=== PATIENT | male | born 1965 | race Caucasian/White ===

== ENCOUNTER 2022-04-07 19:49 | Emergency (ER) | payer OTHER, SELFPAY ==
--- NOTE | ~2022-04-07 | CT_ITS ---
EXAMINATION: CT LUMBAR SPINE WITHOUT CONTRAST CLINICAL INFORMATION: Trauma. Back Pain. Left leg numbness. On Eliquis COMPARISON: None TECHNIQUE: Axial images obtained through the cervical spine. Coronal and sagittal reformatted images are performed at CT scanner This CT examination was performed using dose optimization techniques as appropriate, variously including the following: *Automated exposure control *Adjustment of mA and/or kV according to patient size (this includes techniques or standardized protocols for targeted exams where dose is matched to indication/reason for exam; i.e. extremities or head) *Use of iterative reconstruction technique DLP; 23.39+23.39+874.33 mGy-cm FINDINGS: There are 4 nonrib-bearing lumbar vertebrae. There is sacralization of the L5 vertebrae. Vertebrae have normal height and alignment. No fracture. No spondylolysis or spondylolisthesis. No paraspinal hematoma or fluid collection. Vascular calcifications of the abdominal aorta without aneurysm. Disc levels: T12-L1: Lumbar disc height normal. No disc protrusion. No central canal stenosis. Neural foramina open. Mild facet joint arthrosis. L1-L2: Lumbar disc height normal. No disc protrusion. No central canal stenosis. Neural foramina open. Mild facet joint arthrosis. L2-L3: Mild disc height narrowing. Circumferential bulge with annular fibers. No focal disc protrusion. Mild central canal stenosis. Mild degenerative change of the facet joints. Neural foramina open bilateral. L3-L4: Marked disc height narrowing with vacuum disc changes. No focal disc protrusion. Mild to moderate central canal stenosis. Mild facet joint arthrosis. Slight narrowing of the right neural foramina. Left neural foramina is open. L4-L5: Marked disc height narrowing vacuum disc changes. No focal disc protrusion. No central canal stenosis. Moderate facet joint arthrosis. Mild narrowing of the neural foramina bilaterally. CT/CT lumbar spine wo IV con IMPRESSION: 1. No acute abnormality. 2. Degenerative changes of the lumbar spine.
--- NOTE | ~2022-04-07 | CT_ITS ---
EXAMINATION: CT HEAD WITHOUT CONTRAST CT CERVICAL SPINE WITHOUT CONTRAST CLINICAL INFORMATION: Trauma. COMPARISON: None. TECHNIQUE: Imaging was performed from the skull base to vertex without intravenous administration of contrast. In addition, helical noncontrast CT imaging was acquired through the cervical spine and source images were reviewed along with axial reconstructions and sagittal and coronal MPRs. [This CT examination was performed using dose optimization techniques as appropriate, variously including the following: *Automated exposure control *Adjustment of mA and/or kV according to patient size (this includes techniques or standardized protocols for targeted exams where dose is matched to indication/reason for exam; i.e. extremities or head) *Use of iterative reconstruction technique] DLP: 10.25+762.61+889.93 mGy-cm FINDINGS: HEAD: No intracranial mass, hemorrhage, or midline shift is visualized. The ventricles and sulci are proportional. No extra-axial collections are identified. The paranasal sinuses and mastoid air cells are well aerated. CERVICAL SPINE: There is no evidence of acute cervical spine fracture. Vertebral bodies remain normal in height. Cervical vertebrae have normal alignment. There is mild multilevel degenerative spondylosis of the cervical spine with disc height narrowing and endplate spurs and facet joint arthrosis No pre- or paravertebral soft tissue abnormality is identified. Limited assessment of the lung apices is unremarkable. CT/CT head/brain wo IV con IMPRESSION: 1. No acute intracranial pathology. 2. No CT evidence of acute cervical spine fracture or traumatic subluxation
--- NOTE | ~2022-04-07 | CT_ITS ---
EXAMINATION: CT HEAD WITHOUT CONTRAST CT CERVICAL SPINE WITHOUT CONTRAST CLINICAL INFORMATION: Trauma. COMPARISON: None. TECHNIQUE: Imaging was performed from the skull base to vertex without intravenous administration of contrast. In addition, helical noncontrast CT imaging was acquired through the cervical spine and source images were reviewed along with axial reconstructions and sagittal and coronal MPRs. [This CT examination was performed using dose optimization techniques as appropriate, variously including the following: *Automated exposure control *Adjustment of mA and/or kV according to patient size (this includes techniques or standardized protocols for targeted exams where dose is matched to indication/reason for exam; i.e. extremities or head) *Use of iterative reconstruction technique] DLP: 10.25+762.61+889.93 mGy-cm FINDINGS: HEAD: No intracranial mass, hemorrhage, or midline shift is visualized. The ventricles and sulci are proportional. No extra-axial collections are identified. The paranasal sinuses and mastoid air cells are well aerated. CERVICAL SPINE: There is no evidence of acute cervical spine fracture. Vertebral bodies remain normal in height. Cervical vertebrae have normal alignment. There is mild multilevel degenerative spondylosis of the cervical spine with disc height narrowing and endplate spurs and facet joint arthrosis No pre- or paravertebral soft tissue abnormality is identified. Limited assessment of the lung apices is unremarkable. CT/CT cervical spine wo IV con IMPRESSION: 1. No acute intracranial pathology. 2. No CT evidence of acute cervical spine fracture or traumatic subluxation
[2022-04-07 21:18] VITALS: BP 149/86; PULSE 84; RESP 16; TEMP 36.6; O2SAT 99; BMI 40.3
--- NOTE | 2022-04-07 22:19 | ED.FALL ---
HPI - Fall General Chief Complaint: Fall Stated Complaint: Fall at work Time Seen by Provider: 04/07/22 21:40 Source: patient Mode of arrival: ambulatory Limitations: no limitations History of Present Illness HPI Narrative: 57-year-old male with history of AFib on Eliquis, hypertension, hyperlipidemia presents with complaints of headache, photophobia, neck pain, lower back pain with radiation of pain into the left leg with decreased sensation. 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 Patient tells me that there was a ditch that he did not see and when he went to step down he fell approximately 4 ft landing backwards hitting the back of his head and his back on the ground. Unsure if there was loss of consciousness. Patient was able to get up after the fall. Immediately had pain in the lower back which radiated to the left leg. Patient denies any weakness of the extremities. No chest or abdominal pain. No vomiting or dizziness. Related Data Previous Rx's Medication Instructions Recorded cyclobenzaprine 10 mg tablet 10 mg PO TID PRN muscle spasm #15 04/07/22 tabs lidocaine 5 % topical patch 1 patch topical DAILY #15 ea 04/07/22 (Lidoderm) Allergies Allergy/AdvReac Type Severity Reaction Status Date / Time fentanyl [FENTANYL] Allergy Unknown THROAT Unverified 03/13/20 17:29 CLOSES UP morphine [MORPHINE] Allergy Unknown THROAT Unverified 03/13/20 17:29 CLOSES UP Review of Systems Review of Systems: Yes all other systems are reviewed and are negative Constitutional: Constitutional: Reports no additional constitutional complaints, Denies body ache(s), Denies chills, Denies fever(s), Reports headache(s) and Denies weakness Eyes: Eyes: Reports no additional eye complaints, Denies change in vision and Reports photophobia ENT: Reports system reviewed and no additional complaints, except as documented, Denies dizziness, Reports headache(s), Denies nasal congestion, Denies nasal discharge and Reports neck pain Cardiovascular: Cardiovascular: Reports no additional cardiovascular complaints, Denies chest pain, Denies leg edema and Denies dyspnea Respiratory: Respiratory: Reports no additional respiratory complaints, Denies cough and Denies dyspnea Gastrointestinal: Gastrointestinal: Reports no additional gastrointestinal complaints, Denies abdominal pain, Denies diarrhea, Denies nausea and Denies vomiting Genitourinary: Genitourinary: Denies urinary incontinence Musculoskeletal: Musculoskeletal: Reports no additional musculoskeletal complaints, Reports back pain, Denies arthralgias, Denies joint swelling, Reports neck pain, Reports numbness and Denies tingling Integumentary/Breasts: Skin/Breast: Reports system reviewed and no additional complaints, except as docu and Denies rash Neurologic: Reports system reviewed and no additional complaints, except as documented, Denies Abnormal speech present, Denies dizziness, Reports headache(s), Reports numbness, Denies tingling and Denies weakness FOR[facility]LY [facility] Past Medical History Attestation statement: The following information was validated with the patient. Source: old records reviewed and nursing notes reviewed Social History Social History Advance Directives: No Advance Directives Information Provided: No Physical Exam Vital Signs: Vital Signs: Last Vital Signs Temp 98 F 04/07/22 21:18 Pulse 84 04/07/22 21:18 Resp 16 04/07/22 21:18 BP 149/86 H 04/07/22 21:18 Pulse Ox 99 04/07/22 21:18 O2 Del Method 04/07/22 21:18 BMI result Body Mass Index 40.3 Const: General: cooperative, healthy appearing, comfortable and no acute distress Orientation/consciousness: patient oriented x3 Limitations: no limitations HEENT: Head: Yes normal to inspection Ears: hearing grossly normal bilaterally and TM's normal bilaterally General nose exam: Normal external nose present Face and sinus: Yes normal facial exam Mouth: Normal oral and palatal mucosa present Throat: Yes posterior oropharynx normal, Yes tonsils normal and Yes uvula midline Eyes: General: appearance normal, both eyes and all related structures Pupils: Equal, round and reactive pupils present Direct Ophthalmoscopy: photophobia Neck: Other: There is midline cervical tenderness with no step-offs or deformities. Neck: Yes normal visual inspection and Yes full ROM Chest: Chest palpation & inspection: normal inspection of the chest Resp: Effort & Inspection: normal respiratory effort Auscultation: clear to auscultation bilaterally Cardio: Rate: regular rate Rhythm: regular rhythm Peripheral pulses: Peripheral pulses 2+ throughout GI: Inspection: Yes normal to inspection Palpation (GI): Soft to palpation and nontender Auscultation: normal bowel sounds Back/Spine/Pelvis: Other: There is tenderness the lumbar mid spine with no step-offs or deformities Thoracic/Lumbar Spine: thoracic and lumbar spine normal to inspection Skin: General skin exam: no rashes or lesions noted Neuro: General: patient oriented x3, no focal motor deficits and normal sensation to monofilament Cranial nerves: Yes CN's II-XII intact bilaterally, Yes Equal, round and reactive pupils present, Yes Bilaterally intact EOM present, Yes Nystagmus not present and Yes Normal facial strength present Cognition (Neuro): normal cognition Speech: No Abnormal speech present Gait exam (Neuro): Normal gait present Motor exam (neuro): 5/5 motor strength present throughout Sensory Exam: Normal double simultaneous stimulation for sensation Deep tendon reflexes (DTR's): Right patellar reflex intensity grade: 2+ and Left patellar reflex intensity grade: 2+ Extrem: General: Yes normal to inspection Course Course Course Narrative: 2344-CT head and cervical spine show no acute finding. CT lumbar spine shows degenerative changes but no evidence of paraspinal hematoma or acute fracture. Likely lumbar radiculopathy. No overt neurological deficits or red flag symptoms to suggest cord compression, epidural hematoma. Reviewed worrisome signs and symptoms with patient when to return to the emergency room. Comfortable discharge home. Patient will follow-up with work connection outpatient MDM - Fall MDM Narrative Medical decision making narrative: This is a 57-year-old male who is on anticoagulation for AFib who presents with complaints of a fall which occurred yesterday with subsequent headache, photophobia, neck pain, back pain with radiation to the left leg with decreased sensation subjectively. No overt neurological deficit. As patient is on Eliquis with headache and photophobia and head strike will check CT head. Will also obtain CT of cervical spine. Patient does report back pain with radiation to the left leg with decreased sensation. On exam sensation is intact. No motor weakness. Reflexes are normal in the lower extremities. Will also obtain CT lumbar spine due to patient being on anticoagulation Medical Records Attestation: I reviewed the patient's medical records. Lab Data Attestation: I reviewed the patient's lab results. Imaging Data ct head/cervical spine: Attestation: I personally reviewed and interpreted this imaging study as follows: Radiologist's impression: [address] [address] [address] Scan Report Signed Patient: Rajat Douglass MR#: [id number] : 1965 Acct:[id number] Age/Sex: 57 / M ADM Date: 04/07/22 Loc: HO.ED Attending Dr: Ordering Physician: Evelin Mejia NP Date of Service: 04/07/22 Procedure(s): CT cervical spine wo IV con Accession Number(s): [id number] cc: Evelin Mejia NP~ EXAMINATION: CT HEAD WITHOUT CONTRAST CT CERVICAL SPINE WITHOUT CONTRAST CLINICAL INFORMATION: Trauma.? COMPARISON: None. TECHNIQUE: Imaging was performed from the skull base to vertex without intravenous administration of contrast. In addition, helical noncontrast CT imaging was acquired through the cervical spine and source images were reviewed along with axial reconstructions and sagittal and coronal MPRs. [This CT examination was performed using dose optimization techniques as appropriate, variously including the following: *Automated exposure control *Adjustment of mA and/or kV according to patient size (this includes techniques or standardized protocols for targeted exams where dose is matched to indication/reason for exam; i.e. extremities or head) *Use of iterative reconstruction technique] DLP: 10.25+762.61+889.93 mGy-cm FINDINGS: HEAD: No intracranial mass, hemorrhage, or midline shift is visualized. The ventricles and sulci are proportional. No extra-axial collections are identified. The paranasal sinuses and mastoid air cells are well aerated. CERVICAL SPINE: There is no evidence of acute cervical spine fracture. Vertebral bodies remain normal in height. Cervical vertebrae have normal alignment. There is mild multilevel degenerative spondylosis of the cervical spine with disc height narrowing and endplate spurs and facet joint arthrosis No pre- or paravertebral soft tissue abnormality is identified. Limited assessment of the lung apices is unremarkable. CT/CT cervical spine wo IV con IMPRESSION: 1. No acute intracranial pathology. 2. No CT evidence of acute cervical spine fracture or traumatic subluxation ? ct lumbar spine: Attestation: I personally reviewed and interpreted this imaging study as follows: Radiologist's impression: FINDINGS: There are 4 nonrib-bearing lumbar vertebrae. There is sacralization of the L5 vertebrae. Vertebrae have normal height and alignment. No fracture. No spondylolysis or spondylolisthesis. No paraspinal hematoma or fluid collection. Vascular calcifications of the abdominal aorta without aneurysm. Disc levels: T12-L1: Lumbar disc height normal. No disc protrusion. No central canal stenosis. Neural foramina open. Mild facet joint arthrosis. L1-L2: Lumbar disc height normal. No disc protrusion. No central canal stenosis. Neural foramina open. Mild facet joint arthrosis. L2-L3: Mild disc height narrowing. Circumferential bulge with annular fibers. No focal disc protrusion. Mild central canal stenosis. Mild degenerative change of the facet joints. Neural foramina open bilateral. L3-L4: Marked disc height narrowing with vacuum disc changes. No focal disc protrusion. Mild to moderate central canal stenosis. Mild facet joint arthrosis. Slight narrowing of the right neural foramina. Left neural foramina is open. L4-L5: Marked disc height narrowing vacuum disc changes. No focal disc protrusion. No central canal stenosis. Moderate facet joint arthrosis. Mild narrowing of the neural foramina bilaterally. CT/CT lumbar spine wo IV con IMPRESSION: ? 1. No acute abnormality. 2. Degenerative changes of the lumbar spine.? Discharge Plan Discharge Clinical Impression: Cervical strain, Acute left lumbar radiculopathy Patient Disposition: Home, Self-Care Instructions: Cervical Strain (ED), Lumbar Radiculopathy (ED), Lower Back Exercises (ED) Additional Instructions: Follow-up with work connection at [id number] Heat or ice to affected areas No heavy lifting or bending Return for incontinence of urine/stool, fever >100.4, numbness in the groin, weakness of the extremities Prescriptions: New cyclobenzaprine 10 mg tablet 10 mg PO TID PRN (Reason: muscle spasm) Qty: 15 0RF lidocaine [Lidoderm] 5 % adhesive patch,medicated 1 patch topical DAILY Qty: 15 0RF Rx Instructions: leave on most painful area for up to 12 hrs Referrals: Physician,Unknown J [Primary Care Provider] - Stand Alone Forms: Work/School Release
== END 2022-04-08 00:05 | disposition home or self-care (01) ==
PROVIDERS: Emergency Provider Emergency Medicine
DX: M54.16 Radiculopathy, lumbar region (principal); M54.2 Cervicalgia; R51.9 Headache, unspecified; M54.50 Low back pain, unspecified
CPT/HCPCS: 70450; 72125; 72131; 99282; 99284

== ENCOUNTER 2022-04-10 02:02 | Emergency (ER) | payer OTHER, MEDICARE, MEDICAID, SELFPAY ==
[2022-04-10 02:23] VITALS: BP 154/100; PULSE 85; RESP 11; TEMP 36.6; O2SAT 95; BMI 41.0
[2022-04-10 02:35] VITALS: BP 153/84; PULSE 81; RESP 18; TEMP 36.8; O2SAT 96
--- NOTE | 2022-04-10 02:36 | PC.NURSE ---
Care of patient assumed now in ED. He is alert, oriented x4, and well-appearing. He endorses misstepping out of his work truck on Tuesday morning and falling with +head strike and +LOC. On eliquis for AFIB/CVA. Was seen here yesterday for pain and said the scans were negative. Today, he had an episode of incontinence while in bed and numbness underneath his testicles, so his PCP told him to come back to ED. he endorses pain in his lower back and nerve pain down his left leg. Also endorses pain to left shoulder. Incontinence episode was around 4PM.
[2022-04-10 02:38] LABS: Appearance Urine Clear; Color Urine Yellow; Glucose Urine UA Negative (Negative); Leukocyte Esterase Urine Negative (Negative); Nitrite Urine Negative (Negative); PH 5.5 (5.0-9.0); Specific Gravity - Urine 1.025 (1.005-1.025); Urine Blood Negative (Negative); Urine Ketones Negative (Negative); Urine Protein Negative (Neg-Trace)
[2022-04-10 02:42] LABS: Bacteria Urine None Seen (None Seen); Hyaline Casts Urine 0-2 /LPF (0-2); RBC Urine 0-2 /HPF (0-2); Squamous Epithelial Cell Urine 0-2 /HPF (0-2); WBC Urine 0-5 /HPF (0-5)
[2022-04-10 02:50] LABS: Hematocrit 44.3 % (42.0-52.0); Hemoglobin 14.9 g/dl (14.0-18.0); Mean Corpuscular HGB Conc 33.6 g/dl (31.0-36.0); Mean Corpuscular Hemoglobin 31.4 pg (27.0-33.0); Mean Corpuscular Volume 93.3 fL (80.0-98.0); Mean Platelet Volume 9.5 fL (9.4-12.4); Platelet Count 275 X10*3/uL (160-400); Red Blood Count 4.75 X10*6/uL (4.60-5.80); Red Cell Distribution Width 13.2 % (11.0-16.0); White Blood Count 6.5 X10*3/uL (4.8-10.8)
[2022-04-10 03:13] LABS: Alanine Aminotransferase 25 U/L (0-40); Albumin Level 4.5 g/dL (3.5-5.0); Alkaline Phosphatase 122 U/L (39-117); Anion Gap 15 (12-20); Aspartate Amino Transferase 18 U/L (5-37); Bilirubin Direct 0.2 mg/dL (0.0-0.5); Bilirubin Total 0.3 mg/dL (0.0-1.0); Blood Urea Nitrogen 16 mg/dL (9-16); Calcium 9.3 mg/dL (8.4-10.2); Carbon Dioxide 26 mmol/L (22-29); Chloride 102 mmol/L (96-108); Creatinine Clr Calc Pharmacy 115.2; Estimated Glomerular Filt Rate > 60; Glucose Random 133 mg/dL (60-115); Lipase 20 U/L (8-78); Potassium 4.3 mmol/L (3.3-5.1); Sodium 139 mmol/L (135-145)
--- NOTE | 2022-04-10 03:17 | ED_ITS ---
HPI - General Adult General Chief complaint: General Medical Stated complaint: L Shoulder pain/Back pain (Work Inj) Time Seen by Provider: 04/10/22 03:16 Source: patient Mode of arrival: ambulatory Limitations: no limitations History of Present Illness HPI narrative: Patient is 57 years old with history of AFib on Eliquis, hypertension, hyperlipidemia was seen here on 04/07/2022 after he fell in a ditch when coming out of the truck on 04/06 which was about 4-6 feet deep patient fell and hit his back and neck part to the ground since then patient complaining of numbness in perineal area patient had a CT scan lumbar spine C-spine and head CT was negative no incontinence patient has controlled on stool but just does not feel his perineum area. Related Data Previous Rx's Medication Instructions Recorded cyclobenzaprine 10 mg tablet 10 mg PO TID PRN muscle spasm #15 04/07/22 tabs lidocaine 5 % topical patch 1 patch topical DAILY #15 ea 04/07/22 (Lidoderm) Allergies Allergy/AdvReac Type Severity Reaction Status Date / Time fentanyl [FENTANYL] Allergy Unknown THROAT Unverified 03/13/20 17:29 CLOSES UP morphine [MORPHINE] Allergy Unknown THROAT Unverified 03/13/20 17:29 CLOSES UP Review of Systems Review of Systems: Yes all other systems are reviewed and are negative PMFSH Social History Social History Advance Directives: No Advance Directives Information Provided: Yes Physical Exam ED Vital Signs: Vital Signs - 24 hr 04/10/22 02:23 04/10/22 02:35 04/10/22 05:06 Temperature 97.9 F 98.3 F Pulse Rate 85 81 93 Respiratory Rate 11 L 18 22 H Blood Pressure 154/100 H 153/84 H 139/88 Pulse Oximetry 95 96 97 Oxygen Delivery Method Room Air Room Air Room Air 04/10/22 06:12 Temperature 98.1 F Pulse Rate 75 Respiratory Rate 16 Blood Pressure 132/88 Pulse Oximetry 96 Oxygen Delivery Method Room Air BMI result Body Mass Index 41.0 Appearance: Alert. Oriented X3. No acute distress. Eyes: PERRLA, No Nystagmus ENT: Pharynx normal. Oral Mucosa moist Neck: Normal inspection. Neck supple. CVS: Normal heart rate and rhythm. Pulses normal. Respiratory: No respiratory distress. Equal air entry bilateral, no wheezing/rales/rhonchi Abdomen: Soft and nontender. Bowel sounds are present, no mass palpable, no CVA tenderness Skin: Skin warm and dry. Normal skin color. Normal skin turgor. Extremities: No lower extremity edema. No calf tenderness Back: Diffuse lower lumbar tenderness cycle since she has an intact rectal tone is normal decreased perianal sensation Neuro: Oriented X 3. No motor deficit. No sensory deficit.No cerebellar signs , cranial nerves II-XII intact DTR 2+ bilateral SLR negative Medical Decision Making MDM Narrative Medical decision making narrative: 6 am Patient with loss of sensation in perineal area after the fall will get MRI to rule out cauda equina patient was given p.o. Decadron awaiting for MRI in a.m. patient's CT scan of lumbar spine was negative for any fracture 7 am patient signed out to Dr. Argueta pending MRI and disposition Lab Data Result diagrams: 04/10/22 02:44 04/10/22 02:44 Labs: Lab Results 04/10/22 04/10/22 04/10/22 Range/Units 02:32 02:44 02:44 WBC 6.5 (4.8-10.8) X10*3/uL RBC 4.75 (4.60-5.80) X10*6/uL Hgb 14.9 (14.0-18.0) g/dl Hct 44.3 (42.0-52.0) % MCV 93.3 (80.0-98.0) fL MCH 31.4 (27.0-33.0) pg MCHC 33.6 (31.0-36.0) g/dl RDW 13.2 (11.0-16.0) % Plt Count 275 (160-400) X10*3/uL MPV 9.5 (9.4-12.4) fL Absolute Nucleated RBC 0.000 (0.0-0.012) X10*3/uL Nucleated RBC % (auto) 0.0 (0.0-0.2) /100WBC Sodium 139 (135-145) mmol/L Potassium 4.3 (3.3-5.1) mmol/L Chloride 102 (96-108) mmol/L Carbon Dioxide 26 (22-29) mmol/L Anion Gap 15 (12-20) BUN 16 (9-16) mg/dL Creatinine 0.89 (0.5-1.4) mg/dL Estim Creat Clear Calc 115.2 Estimated GFR > 60 Random Glucose 133 H (60-115) mg/dL Calcium 9.3 (8.4-10.2) mg/dL Total Bilirubin 0.3 (0.0-1.0) mg/dL Direct Bilirubin 0.2 (0.0-0.5) mg/dL AST 18 (5-37) U/L ALT 25 (0-40) U/L Alkaline Phosphatase 122 H (39-117) U/L Total Protein 7.0 (6.5-8.0) g/dL Albumin 4.5 (3.5-5.0) g/dL Lipase 20 (8-78) U/L Urine Color Yellow Urine Appearance Clear Urine pH 5.5 (5.0-9.0) Ur Specific [place] 1.025 (1.005-1.025) Urine Protein Negative (Neg-Trace) mg/dL Urine Glucose (UA) Negative (Negative) mg/dL Urine Ketones Negative (Negative) mg/dL Urine Blood Negative (Negative) Urine Nitrite Negative (Negative) Ur Leukocyte Esterase Negative (Negative) Urine RBC 0-2 (0-2) /HPF Urine WBC 0-5 (0-5) /HPF Ur Squamous Epith Cells 0-2 (0-2) /HPF Urine Bacteria None Seen (None Seen) Hyaline Casts 0-2 (0-2) /LPF Discharge Plan Discharge Clinical Impression: Low back pain Patient Disposition: Still a Patient Prescriptions: No Action cyclobenzaprine 10 mg tablet 10 mg PO TID PRN (Reason: muscle spasm) Qty: 15 0RF lidocaine [Lidoderm] 5 % adhesive patch,medicated 1 patch topical DAILY Qty: 15 0RF Rx Instructions: leave on most painful area for up to 12 hrs
[2022-04-10] MEDS: oxyCODONE HCl Immed Release 5 MG TABLET 10 MG PO ×2 (03:39→07:59)
[2022-04-10] MEDS: dexAMETHasone 2 MG TABLET 10 MG PO (03:39)
[2022-04-10 05:06] VITALS: BP 139/88; PULSE 93; RESP 22; O2SAT 97
[2022-04-10 06:12] VITALS: BP 132/88; PULSE 75; RESP 16; TEMP 36.7; O2SAT 96
[2022-04-10 11:38] VITALS: BP 146/91; PULSE 77; RESP 16; O2SAT 95
== END 2022-04-10 11:53 | disposition left against medical advice (07) ==
PROVIDERS: Emergency Provider Internal Medicine; PCP Internal Medicine
DX: Z04.2 Encounter for examination and observation following work accident (principal); M54.50 Low back pain, unspecified; R20.2 Paresthesia of skin; I10 Essential (primary) hypertension; I48.91 Unspecified atrial fibrillation; E78.5 Hyperlipidemia, unspecified; Z79.01 Long term (current) use of anticoagulants; E66.9 Obesity, unspecified; Z68.41 Body mass index [BMI] 40.0-44.9, adult
CPT/HCPCS: 36415; 80053; 81001; 82248; 83690; 85027; 99283; 99284; J8540

== ENCOUNTER 2023-09-03 23:42 | Emergency (ER) | payer MEDICARE, MEDICAID, SELFPAY ==
[2023-09-03 23:44] VITALS: BP 129/82; PULSE 86; RESP 18; TEMP 36.8; O2SAT 94; BMI 41.8
--- NOTE | 2023-09-04 00:07 | ED_ITS ---
HPI - General Adult General Chief complaint: Dental/Oral Stated complaint: gen med Time Seen by Provider: 09/04/23 00:07 Source: patient Mode of arrival: ambulatory Limitations: no limitations History of Present Illness HPI narrative: Patient is a 58 year old, assigned male at with a history of HTN, HLD, pre-diabetes, and CVA (ischemic stroke) presents to the ED for a 2 day history of dental pain s/p tooth extraction 7 days ago. Patient endorses pain from the area surrounding the extraction site. Patient endorses facial swelling, fevers, and chills as associated symptoms. Denies headaches, lightheadedness, dizziness, cough, sore throat, SOB, chest pain, palpitation, abdominal pain, changes in bowel or urinary habits, and numbness and tingling. No recent ABX use. MD complaint: Dental pain Onset (ago): day(s) (2) Location: mouth (extraction site) Radiation: non-radiation Severity: mild Severity scale (1-10): 2 Quality: aching Pain Consistency: constant Relieving factors: none Exacerbating factors: none Treatments prior to arrival: none Related Data Previous Rx's Medication Instructions Recorded cyclobenzaprine 10 mg tablet 10 mg PO TID PRN muscle spasm #15 04/07/22 tabs lidocaine 5 % topical patch 1 patch topical DAILY #15 ea 04/07/22 (Lidoderm) penicillin V potassium 500 mg 500 mg PO BID 10 days #20 tabs 09/04/23 tablet Allergies Allergy/AdvReac Type Severity Reaction Status Date / Time fentanyl [FENTANYL] Allergy Unknown THROAT Verified 09/03/23 23:48 CLOSES UP morphine [MORPHINE] Allergy Unknown THROAT Verified 09/03/23 23:48 CLOSES UP Review of Systems Constitutional: Constitutional: Reports no additional constitutional complaints, Denies chills, Denies fever(s) and Denies night sweats Eyes: Eyes: Reports no additional eye complaints, Denies blurry vision, Denies change in vision, Denies diplopia, Denies eye discharge, Denies loss of vision and Denies eye pain ENT: Denies dizziness Comments: dental pain Cardiovascular: Cardiovascular: Reports no additional cardiovascular complaints, Denies chest pain, Denies lightheadedness, Denies Loss of Consciousness and Denies dyspnea Respiratory: Respiratory: Reports no additional respiratory complaints and Denies dyspnea Gastrointestinal: Gastrointestinal: Reports no additional gastrointestinal complaints, Denies abdominal pain, Denies melena, Denies hematochezia, Denies change in bowel habits and Denies change in stool character Genitourinary: Genitourinary: Reports no additional male genitourinary complaints, Denies hematuria, Denies oliguria, Denies difficulty urinating, Den ies dysuria, Denies urinary frequency, Denies urinary hesitancy, Denies urinary incontinence and Denies urinary urgency Musculoskeletal: Musculoskeletal: Reports no additional musculoskeletal complaints, Denies numbness and Denies tingling Neurologic: Denies dizziness, Denies loss of vision, Denies numbness and Den ies tingling Psychiatric: Psychiatric: Reports no additional psychiatric complaints Endocrine: Endocrine: Reports no additional endocrine complaints Hematologic/Lymphatic: Hematologic/Lymphatic: Reports no additional hematologic/lymphatic complaints Allergic/Immunologic: Allergic/Immunologic: Reports no additional allergic/immunologic complaints [facility] Past Medical History Attestation statement: The following information was validated with the patient. Source: old records reviewed and nursing notes reviewed Social History Social History Smoked in Last 30 Days: Yes Use of substances other than those prescribed or required for medical reasons: No Advance Directives: No Advance Directives Information Provided: No Physical Exam ED Vital Signs: Vital Signs - 24 hr 09/03/23 23:44 09/04/23 00:41 Temperature 98.2 F 98.6 F Pulse Rate 86 90 Respiratory Rate 18 17 Blood Pressure 129/82 118/72 Pulse Oximetry 94 96 Oxygen Delivery Method Room Air Room Air BMI result Body Mass Index 41.8 Const General: cooperative, no acute distress, alert and awake Nutritional Appearance: obese Orientation/consciousness: patient oriented x3 Limitations: no limitations [facility] Head: Yes normal to inspection Ears: hearing grossly normal bilaterally General nose exam: Normal external nose present Face and sinus: Yes normal facial exam Mouth: Normal oral and palatal mucosa present Teeth and gingiva: abnormal tooth and associated gingiva upper left lateral incisor tender, with associated gingival edema and other (tooth extraction site w/ presence of aphthous ulcers) and poor dentition Throat: Yes posterior oropharynx normal Eyes General: appearance normal, both eyes and all related structures Periorbital: periorbital findings normal Eyelids: Yes eyelids normal Conjunctivae: conjunctivae normal Pupils: Equal, round and reactive pupils present EOM: EOMs intact bilaterally Neck Neck: Yes normal visual inspection Chest Chest palpation & inspection: normal inspection of the chest Resp Effort & Inspection: normal respiratory effort and able to speak in complete sentences Auscultation: clear to auscultation bilaterally Cardio Jugular venous distension: no JVD Palpation: normal PMI Rate: regular rate Rhythm: regular rhythm GI Inspection: Yes normal to inspection Neuro General: patient oriented x3 Cranial nerves: Yes Equal, round and reactive pupils present Cognition (Neuro): normal cognition Motor exam (neuro): 5/5 motor strength present throughout Sensory Exam: Normal double simultaneous stimulation for sensation Coordination: [id number] test normal Extrem General: Yes normal to inspection, Yes full ROM and Yes capillary refill normal Psych Appearance: grossly normal Mental Status: mental status grossly normal Affect: normal affect Attitude: cooperative Thought process: Normal thought process present Thought content: Normal thought content present Insight: Good insight present (Psych) Medical Decision Making Medical Decision Making MDM Narrative: Patient is a 58 year old assigned male at with a history of CVA and recent dental extraction presenting to the emergency department today with dental pain and swelling. Patient's physical exam was as noted in the physical exam portion of this note. I explained my physical exam findings to the patient. I answered all questions asked by the patient. I stressed the importance of the patient taking his medication as prescribed. I stressed the importance of the patient following up with his primary care provider and his dentist. I stressed the importance of the patient returning to the emergency department immediately if his symptoms were to worsen or if he were to develop any dizziness, shortness of breath, difficulty breathing, chest pain, blurry vision, loss of vision, nausea, vomiting, abdominal pain, fever, chills, back pain, or any other complaints. Patient verbalized agreement and understanding with this treatment plan and discharge. Differential Diagnosis Differential Diagnoses: The differential diagnosis associated with the presentation includes Dental abscess Dental pain Poor dentition Dental caries Admission/Observation Consideration of admission/observation: Escalation of care including admission/observation considered Patient would have been admitted to the hospital had his clinical presentation warranted hospital admission. Prescription Management I considered prescription management with: Antibiotic (patient prescribed an antibiotic) Discharge Plan Discharge Clinical Impression: Dental abscess Patient Disposition: Home, Self-Care Instructions: Dental Abscess (ED) Additional Instructions: Follow up with your primary care provider and your dentist. Return to the emergency department immediately if your symptoms worsen or if you develop any dizziness, shortness of breath, difficulty breathing, chest pain, blurry vision, loss of vision, nausea, vomiting, abdominal pain, fever, chills, back pain, or any other complaints. Prescriptions: New penicillin V potassium 500 mg tablet 500 mg PO BID 10 Days Qty: 20 0RF No Action cyclobenzaprine 10 mg tablet 10 mg PO TID PRN (Reason: muscle spasm) Qty: 15 0RF lidocaine [Lidoderm] 5 % adhesive patch,medicated 1 patch topical DAILY Qty: 15 0RF Rx Instructions: leave on most painful area for up to 12 hrs [place] [facility] [place]] (Call to establish and follow up with a primary care provider. If you already have a primary care provider, please follow up with them.) [facility] [place] [facility] [Provider Group] (Call to establish and follow up with a primary care provider. If you already have a primary care provider, please follow up with them.) [facility] [place] [facility] [place]] (Call to establish and follow up with a primary care provider. If you already have a primary care provider, please follow up with them.) Stand Alone Forms: Work/School Release Interventions: ED Discharge Assessment Last Done: 09/04/23 00:41 Discharge Date/Time: 09/04/23 00:41 Print Language: Ecuadorean
[2023-09-04 00:41] VITALS: BP 118/72; PULSE 90; RESP 17; TEMP 37; O2SAT 96
== END 2023-09-04 00:41 | disposition home or self-care (01) ==
PROVIDERS: Emergency Provider Emergency Medicine Emergency Medical Services
DX: K04.7 Periapical abscess without sinus (principal); I10 Essential (primary) hypertension; Z86.73 Personal history of transient ischemic attack (TIA), and cerebral infarction without residual deficits; Z79.899 Other long term (current) drug therapy
CPT/HCPCS: 99283; 99284

== ENCOUNTER 2024-10-22 12:36 | Emergency (ER) | payer MEDICARE, MEDICAID, SELFPAY ==
--- NOTE | ~2024-10-22 | XR_ITS ---
EXAMINATION: XR CHEST CLINICAL INFORMATION: pain COMPARISON: None available. TECHNIQUE: 2 views of the chest were obtained. FINDINGS: No consolidation, pleural fissure pneumothorax. Cardiomediastinal silhouette size is normal. Calcified plaques in the aortic arch. Multilevel thoracic spondylosis. Patient's large body habitus. XR/XR chest 2V IMPRESSION: No acute airspace disease. Electronically signed by: Madi Vega MD 10/22/2024 01:19 PM EDT
[2024-10-22 12:41] VITALS: BP 118/82; PULSE 79; RESP 18; TEMP 36.3; O2SAT 96; BMI 36.1
--- NOTE | 2024-10-22 12:45 | ED_ITS ---
HPI - General Adult General Chief complaint: Dyspnea Stated complaint: lung pain Related Data Previous Rx's ?Medication ?Instructions ?Recorded cyclobenzaprine 10 mg tablet 10 mg PO TID PRN muscle spasm #15 04/07/22 tabs lidocaine 5 % topical patch 1 patch topical DAILY #15 ea 04/07/22 (Lidoderm) penicillin V potassium 500 mg 500 mg PO BID 10 days #20 tabs 09/04/23 tablet Allergies Allergy/AdvReac Type Severity Reaction Status Date / Time fentanyl [FENTANYL] Allergy Unknown THROAT Verified 10/22/24 12:43 CLOSES UP morphine [MORPHINE] Allergy Unknown THROAT Verified 10/22/24 12:43 CLOSES UP [facility] Social History Social History Advance Directives: No Advance Directives Information Provided: No Do you have a plan to hurt others: No Plan Physical Exam ED Vital Signs: Vital Signs - 24 hr 10/22/24 12:41 Temperature 97.4 F Pulse Rate 79 Respiratory Rate 18 Blood Pressure 118/82 Pulse Oximetry 96 Oxygen Delivery Method Room Air BMI result Body Mass Index 36.1 Course Course Course Narrative: RME, this is a rapid medical exam performed by Jimy Lozada please refer to primary provider for complete H&P- 59-year-old male presents for evaluation of right upper back pain. He reports his pain is stabbing and feels consistent with when he had a blod clot in my lungs in the past. He denies cough, fevers, chills. Plan for labs, chest x-ray and EKG. Medical Decision Making Lab Data 10/22/24 13:03 10/22/24 13:03 Labs: Lab Results 10/22/24 Range/Units 13:03 WBC 8.5 (4.8-10.8) X10*3/uL RBC 4.54 L (4.60-5.80) X10*6/uL Hgb 14.7 (14.0-18.0) g/dl Hct 42.8 (42.0-52.0) % MCV 94.3 (80.0-98.0) fL MCH 32.4 (27.0-33.0) pg MCHC 34.3 (31.0-36.0) g/dl RDW 14.2 (11.0-16.0) % Plt Count 279 (160-400) X10*3/uL MPV 9.2 L (9.4-12.4) fL Immature Gran % (Auto) 0.4 (0.0-0.4) % Neut % (Auto) 51.9 (45-73) % Lymph % (Auto) 36.8 (20-40) % Stokes % (Auto) 7.2 (2-11) % Eos % (Auto) 3.1 (0-4) % Baso % (Auto) 0.6 (0-2) % Lymph # (Auto) 3.1 (1.2-4.9) X10*3/uL Stokes # (Auto) 0.6 (0.1-1.2) X10*3/uL Eos # (Auto) 0.3 (0.0-0.4) X10*3/uL Baso # (Auto) 0.1 (0.0-0.2) X10*3/uL Abs Immat Gran (auto) 0.03 (0.00-0.03) X10*3/uL Absolute Neuts (auto) 4.4 (2.0-8.3) x10*3/uL Absolute Nucleated RBC 0.000 (0.0-0.012) X10*3/uL Nucleated RBC % (auto) 0.0 (0.0-0.2) /100WBC Sodium 136 (135-145) mmol/L Potassium 4.4 (3.3-5.1) mmol/L Chloride 102 (96-108) mmol/L Carbon Dioxide 27 (22-29) mmol/L Anion Gap 11 L (12-20) BUN 7 L (9-16) mg/dL Creatinine 0.76 (0.5-1.4) mg/dL Estim Creat Clear Calc 122.9 Estimated GFR > 60 Random Glucose 97 (60-115) mg/dL Calcium 8.9 (8.4-10.2) mg/dL Total Bilirubin 0.4 (0.0-1.0) mg/dL AST 20 (5-37) U/L ALT 19 (0-40) U/L Alkaline Phosphatase 91 (39-117) U/L Troponin I High Sens 3.1 (<3.5-35.0) ng/L B-Natriuretic Peptide 72 (<100) pg/mL Total Protein 6.7 (6.5-8.0) g/dL Albumin 4.0 (3.5-5.0) g/dL Lipase 34 (8-78) U/L Discharge Plan Discharge Clinical Impression: Back pain Patient Disposition: Left W/O Completing Treatment Prescriptions: No Action cyclobenzaprine 10 mg tablet 10 mg PO TID PRN (Reason: muscle spasm) Qty: 15 0RF lidocaine [Lidoderm] 5 % adhesive patch,medicated 1 patch topical DAILY Qty: 15 0RF Rx Instructions: leave on most painful area for up to 12 hrs penicillin V potassium 500 mg tablet 500 mg PO BID 10 Days Qty: 20 0RF Discharge Date/Time: 10/22/24 16:58
--- NOTE | 2024-10-22 12:45 | ECG_ITS ---
Test Reason : pain Blood Pressure : */* mmHG Vent. Rate : 79 BPM Atrial Rate : * BPM P-R Int : * ms QRS Dur : 84 ms QT Int : 402 ms P-R-T Axes : * 1 35 degrees QTcB Int : 460 ms Atrial fibrillation Abnormal ECG No previous ECGs available Referred By: Alexis Lozada Electronically Signed By: Ronny Donis
[2024-10-22 13:07] LABS: MANUAL DIFF FLAG NO
[2024-10-22 13:08] LABS: Basophils Absolute Auto 0.1 X10*3/uL (0.0-0.2); Basophils Percent Auto 0.6 % (0-2); Eosinophils Absolute Auto 0.3 X10*3/uL (0.0-0.4); Eosinophils Percent Auto 3.1 % (0-4); Hematocrit 42.8 % (42.0-52.0); Hemoglobin 14.7 g/dl (14.0-18.0); Imm Gran Abs Auto 0.03 X10*3/uL (0.00-0.03); Imm Gran Pct Auto 0.4 % (0.0-0.4); Lymphocytes Absolute Auto 3.1 X10*3/uL (1.2-4.9); Lymphocytes Percent Auto 36.8 % (20-40); Mean Corpuscular HGB Conc 34.3 g/dl (31.0-36.0); Mean Corpuscular Hemoglobin 32.4 pg (27.0-33.0); Mean Corpuscular Volume 94.3 fL (80.0-98.0); Mean Platelet Volume 9.2 fL (9.4-12.4); Monocytes Absolute Auto 0.6 X10*3/uL (0.1-1.2); Monocytes Percent Auto 7.2 % (2-11); Neutrophils Absolute Auto 4.4 x10*3/uL (2.0-8.3); Neutrophils Percent Auto 51.9 % (45-73); Platelet Count 279 X10*3/uL (160-400); Red Blood Count 4.54 X10*6/uL (4.60-5.80); Red Cell Distribution Width 14.2 % (11.0-16.0); White Blood Count 8.5 X10*3/uL (4.8-10.8)
[2024-10-22 13:28] LABS: Alanine Aminotransferase 19 U/L (0-40); Alkaline Phosphatase 91 U/L (39-117); Anion Gap 11 (12-20); Aspartate Amino Transferase 20 U/L (5-37); Bilirubin Total 0.4 mg/dL (0.0-1.0); Blood Urea Nitrogen 7 mg/dL (9-16); Calcium 8.9 mg/dL (8.4-10.2); Carbon Dioxide 27 mmol/L (22-29); Chloride 102 mmol/L (96-108); Creatinine Clr Calc Pharmacy 122.9; Estimated Glomerular Filt Rate > 60; Glucose Random 97 mg/dL (60-115); Lipase 34 U/L (8-78); Potassium 4.4 mmol/L (3.3-5.1); Sodium 136 mmol/L (135-145); Total Protein 6.7 g/dL (6.5-8.0)
[2024-10-22 13:32] LABS: B Type Natriuretic Peptide 72 pg/mL (<100)
[2024-10-22 13:33] LABS: Troponin-I High Sensitivity 3.1 ng/L (<3.5-35.0)
--- OUTSIDE RECORDS SUMMARY | 2024-10-22 19:06 | XMS_ITS | Patient Health Record ---
Author Organization [facility] Address [address] [place] [address] Care Team Providers Care [employer] Player Name Role Phone Bert Carlson MD, Dante Primary Care Provider Unavailable Allergies Allergen (clinical drug ingredient) Drug/Non Drug Allergy documented on EMR Reaction Allergy Type Onset Date Status morphine Morphine Unknown Drug Allergy Active Reason For Referral No Information Medications Medication SIG (Take, Route, Fr equency, Duration) Notes Start Date End Date Status oxyCODONE HCl 20MG Active Eliquis 5MG Active Lisinopril 40MG Active amLODIPine Besylate 10 MG Active Zolpidem Tartrate 10MG Ac tive Atorvastatin Calcium 80MG Active DULoxetine HCl 60MG Activ e Metoprolol Succinate 50MG Active Social History Tobacco Use: Social History Observation Description Date Details (start date - stop date) Former Smoker NA - NA Tobacco Use/Smoking Question Answer Notes Are you a former smoker How long has it been since you last smoked? 1-5 years Additional Findings: Tobacco Non-User Ex-cigaret te smoker Problems Problem Type SNOMED Code ICD Code Onset Dates Problem Status W/U Status Risk Notes Problem Lumbosacral spondylosis without myelopathy (72481073) Spondylosis without myelopathy or radiculopathy, lumbar region (M47.816) Active confirmed Problem High risk drug monitoring status (108597071) custodial (current) use of opiate analgesic (Z79.891) Active confirmed Plan Of Treatment Pending Test Test Name Order Date PHENCYCLIDINE (PCP) QUANTITATIVE 022 COCAINE QUANTITATIVE 09/01/2021 OXYCODONE QUANTITATIVE 09/01/2021 AMPHETAMINES QUANTITATIVE 09/01/2021 BARBITURATES QUANTITATIVE 09/01/2021 METHADONE QUANTITATIVE 09/01/2021 MDMA (ECSTASY) QUANTITATIVE 09/01/2021 TRAMADOL QUANTITATIVE 09/01/2021 FENTANYL QUANTITATIVE 09/01/2021 BUPRENORPHINE QUANTITATIVE 09/01/2021 BENZODIAZEPINE QUANTITATIVE 09/01/2021 OPIATES QUANTITATIVE 09/01/2021 ANTICONVULSANT QUANTITATIVE 09/01/2021 CATHINONES(BATH SALT) QUANTITATIVE 09/01 SLEEP AID QUANTITATIVE 09/01/2021 METHYLPHENIDATE 09/01/2021 TAPENTADOL PANEL 09/01/2021 MERPERIDINE PANEL 09/01/2021 CREATININE 09/01/2021 Carisoprodol 09/01/2021 LAB REPORT 09/01/2021 [facility] 09/01/2021 Insurance Providers Payer Name Payer Address Payer Phone Subscriber Number Group Number Insured Name Patient Relationship to Insured Coverage Start Date Coverage End Date [place] [address] [place]H ORTIZ [phone] [id number] EMILEE ROB Self - patient is the insured [employer] [place] [address] [place] [phone] [id number] EMILEE ROB Self - patient is the insured Medical (General) History Medical History History ICD Code ARRTHYMIA STROKE DDD JOINT PAIN ARTHRITIS STROKE (TIA) Surgical History Surgery Date(Month/Year) Hospitalization History Reason Date(Month/Year) LEFT KNEE LEFT SHOOULDER RIGHT ANKLE
== END 2024-10-22 16:58 | disposition left against medical advice (07) ==
PROVIDERS: Physician Assistant; Emergency Provider Emergency Medicine
DX: M54.50 Low back pain, unspecified (principal); I48.91 Unspecified atrial fibrillation; R94.31 Abnormal electrocardiogram [ECG] [EKG]; R05.9 Cough, unspecified; Z79.899 Other long term (current) drug therapy
CPT/HCPCS: 36415; 71046; 80053; 83690; 83880; 84484; 85025; 93005; 99283

== ENCOUNTER → 2024-10-22 12:45 | Outpatient (BNV) | payer MEDICARE, MEDICAID, SELFPAY | PROVIDERS: Visit Provider Radiology Diagnostic Radiology | DX: R07.9 Chest pain, unspecified (principal) | CPT/HCPCS: 71046 ==

== ENCOUNTER → 2024-10-22 12:45 | Outpatient (BNV) | payer MEDICARE, MEDICAID, SELFPAY | PROVIDERS: Emergency Provider Emergency Medicine; Visit Provider Internal Medicine Cardiovascular Disease | DX: I48.91 Unspecified atrial fibrillation (principal); R94.31 Abnormal electrocardiogram [ECG] [EKG] | CPT/HCPCS: 93010 ==